=== PATIENT | female | born 1945 | race Caucasian/White ===

== ENCOUNTER 2016-05-01 12:32 | Outpatient (CLI) | payer MEDICARE, OTHER | END 2016-05-01 12:33 | disposition home or self-care (01) | DX: M85.89 Other specified disorders of bone density and structure, multiple sites (principal); Z78.0 Asymptomatic menopausal state ==

== ENCOUNTER 2016-05-06 18:50 | Outpatient (CLI) | payer MEDICARE, OTHER | END 2016-05-06 18:51 | disposition home or self-care (01) | DX: Z13.220 Encounter for screening for lipoid disorders (principal) ==

== ENCOUNTER 2016-11-26 07:30 | Outpatient (CLI) | payer MEDICARE, OTHER ==
[2016-11-26 13:47] LABS: CHOL/HDL RATIO 3.6 (<4.4); CHOLESTEROL 237 mg/dL; HDL CHOLESTEROL 65 mg/dL; LDL/HDL RATIO 2.4 (<4.4); TRIGLYCERIDES 72 mg/dL; VLDL CHOLESTEROL 14 mg/dL
== END 2016-11-26 07:31 | disposition home or self-care (01) ==
LOC: LAB.N 07:30
PROVIDERS: ATTEND Physician Assistant
DX: E78.5 Hyperlipidemia, unspecified (principal)
CPT/HCPCS: 36415; 80061

== ENCOUNTER 2017-05-05 08:00 | Outpatient (CLI) | payer MEDICARE, OTHER ==
[2017-05-05 13:14] LABS: ALBUMIN 4.1 g/dL (3.2-5.5); ALBUMIN/GLOBULIN RATIO 1.3 (1.0-2.2); ALKALINE PHOSPHATASE 62 IU/L (42-121); ALT ALANINE AMINOTRANSFERASE 23 IU/L (10-60); AST ASPARTATE AMINOTRANSFERASE 25 IU/L (10-42); BUN - BLOOD UREA NITROGEN 16 mg/dL (6-20); CALCIUM 9.1 mg/dL (8.5-10.3); CARBON DIOXIDE - CO2 27 mmol/L (21-32); CHLORIDE 104 mmol/L (101-111); CHOLESTEROL 250 mg/dL; CREATININE 0.9 mg/dL (0.4-1.0); GFR - MDRD 61 (>89); GLUCOSE 92 mg/dL (70-100); HDL CHOLESTEROL 62 mg/dL; LDL CHOLESTEROL,CALCULATED 174 mg/dL; LDL/HDL RATIO 2.8 (<4.4); SODIUM 137 mmol/L (135-145); TOTAL PROTEIN 7.3 g/dL (6.7-8.2); VLDL CHOLESTEROL 14 mg/dL
== END 2017-05-05 08:01 | disposition home or self-care (01) ==
LOC: LAB.N 08:00
PROVIDERS: ATTEND Physician Assistant
DX: E78.5 Hyperlipidemia, unspecified (principal)
CPT/HCPCS: 36415; 80053; 80061; 83721

== ENCOUNTER 2017-06-02 07:55 | Outpatient (CLI) | payer MEDICARE, OTHER ==
--- NOTE | 2017-06-02 15:23 | Ultrasound Report ---
COMPLETE ABDOMINAL ULTRASOUND: 06/02/2017 CLINICAL INDICATION: Pain, distention. TECHNIQUE: Real-time scanning was performed with fulfillment representative static images obtained. FINDINGS: The liver measures 14.7 cm. Hepatic echogenicity is normal. No intrahepatic biliary dilatation or focal parenchymal lesion is present. The common bile duct measures 4 mm. The gallbladder is normal, as is the pancreas. The right kidney measures 9.5 cm, and appears unremarkable. The left kidney measures 9.4 cm. There is a nonobstructing 8 mm calculus in a lower pole ayesha, and a 2 cm simple cortical cyst present. The spleen measures 9.5 cm, and demonstrates normal echotexture. The abdominal aorta and inferior vena cava are unremarkable. No free fluid is present. IMPRESSION: NONOBSTRUCTING LEFT RENAL CALCULUS. TD: 06/02/2017 15:22 MTDD
--- NOTE | 2017-06-02 15:25 | Ultrasound Report ---
PELVIC ULTRASOUND: 06/02/2017 CLINICAL INDICATION: Pain, bloating. TECHNIQUE: Transabdominal pelvic ultrasound performed for global evaluation. FINDINGS: The uterus is anteverted, measuring 4.3 x 3.8 x 1.7 cm. The endometrium measures 2 mm. No focal myometrial lesion is appreciated. The ovaries are normal, with the right measuring 2.1 x 1.5 x 1.0 cm, and the left measuring 1.9 x 1.6 x 1.3 cm. No free fluid is seen. IMPRESSION: NORMAL TRANSABDOMINAL PELVIC ULTRASOUND. TD: 06/02/2017 15:24
== END 2017-06-02 07:56 | disposition home or self-care (01) ==
LOC: DI 07:55
PROVIDERS: ATTEND Physician Assistant
DX: N20.0 Calculus of kidney (principal)
CPT/HCPCS: 76700; 76856

== ENCOUNTER 2017-07-29 08:00 | Outpatient (CLI) | payer MEDICARE, OTHER ==
[2017-07-29 13:49] LABS: AST ASPARTATE AMINOTRANSFERASE 25 IU/L (10-42); CHOL/HDL RATIO 2.8 (<4.4); CHOLESTEROL 144 mg/dL; HDL CHOLESTEROL 52 mg/dL; LDL CHOLESTEROL,CALCULATED 78 mg/dL; LDL/HDL RATIO 1.5 (<4.4); VLDL CHOLESTEROL 14 mg/dL
== END 2017-07-29 08:01 | disposition home or self-care (01) ==
LOC: LAB.N 08:00
PROVIDERS: ATTEND Physician Assistant
DX: E78.5 Hyperlipidemia, unspecified (principal)
CPT/HCPCS: 36415; 80061; 83721; 84450

== ENCOUNTER 2018-04-13 07:53 | Outpatient (CLI) | payer MEDICARE, OTHER ==
[2018-04-13 14:17] LABS: ALBUMIN 3.5 g/dL (3.2-5.5); ALBUMIN/GLOBULIN RATIO 1.2 (1.0-2.2); ALKALINE PHOSPHATASE 78 IU/L (42-121); ALT ALANINE AMINOTRANSFERASE 43 IU/L (10-60); AST ASPARTATE AMINOTRANSFERASE 26 IU/L (10-42); BUN - BLOOD UREA NITROGEN 17 mg/dL (6-20); CALCIUM 8.8 mg/dL (8.5-10.3); CARBON DIOXIDE - CO2 29 mmol/L (21-32); CHLORIDE 101 mmol/L (101-111); CHOL/HDL RATIO 2.5 (<4.4); CHOLESTEROL 156 mg/dL; CREATININE 0.9 mg/dL (0.4-1.0); GFR - MDRD 61 (>89); GLUCOSE 94 mg/dL (70-100); HDL CHOLESTEROL 62 mg/dL; LDL CHOLESTEROL,CALCULATED 83 mg/dL; LDL/HDL RATIO 1.3 (<4.4); SODIUM 137 mmol/L (135-145); TOTAL PROTEIN 6.4 g/dL (6.7-8.2); VLDL CHOLESTEROL 11 mg/dL
== END 2018-04-13 23:59 | disposition home or self-care (01) ==
LOC: LAB.N 07:53
PROVIDERS: ATTEND Physician Assistant
DX: Z00.00 Encounter for general adult medical examination without abnormal findings (principal); E78.5 Hyperlipidemia, unspecified; Z51.81 Encounter for therapeutic drug level monitoring
CPT/HCPCS: 36415; 80053; 80061; 83721

== ENCOUNTER 2021-07-12 13:04 | Outpatient (CLI) | payer MEDICARE, OTHER ==
--- NOTE | 2021-07-12 14:01 | CT Report ---
PROCEDURE: HEAD WO INDICATIONS: FORGETFULNESS AFTER HITTING HEAD TECHNIQUE: Noncontrast 4.5 mm thick angled axial sections acquired from the foramen magnum to the vertex. For r adiation dose reduction, the following was used: automated exposure control, adjustment of mA and/or kV according to patient size. COMPARISON: None FINDINGS: Image quality: Excellent. CSF spaces: Basal cisterns are patent. No extra-axial fluid collections. The ventricles are symmet claudio in size and shape. Brain: No intracranial bleeds or masses. There is cerebral volume loss for age, with resultant vent ricular and sulcal prominence. Incidental note made of a right choroidal fissure cyst. There are clint ventricular and deep white matter chronic small vessel ischemic changes. There is intracranial inter nal carotid artery atherosclerosis. Skull and face: Calvarium and visualized facial bones appear intact, without suspicious lesions. Sinuses: Visualized sinuses and mastoids are clear. IMPRESSION: No acute intracranial disease process. Reviewed by: Brenna Francis MD, PhD on 07/12/2021 2:00 PM PDT Approved by: Brenna Francis MD, PhD on 07/12/2021 2:00 PM PDT Station ID: [id number]
== END 2021-07-12 13:05 | disposition home or self-care (01) ==
LOC: DI 13:04
PROVIDERS: ATTEND Physician Assistant
DX: R41.3 Other amnesia (principal); S09.90XA Unspecified injury of head, initial encounter

== ENCOUNTER 2022-03-20 11:20 | Outpatient (CLI) | payer MEDICARE, OTHER ==
--- NOTE | 2022-03-20 11:42 | XRAY Report ---
PROCEDURE: Hip w/Pelvis 2-3V LT INDICATIONS: L HIP PAIN TECHNIQUE: AP pelvis with lateral view(s) of the left hip(s). COMPARISON: None. FINDINGS: Bones: No fractures or dislocations. Pelvic ring appears intact. No suspicious bony lesions. Soft tissues: The visualized bowel gas pattern is normal. No suspicious soft tissue calcifications. IMPRESSION: No acute fracture. No osseous lesion. If symptoms and/or clinical suspicion for patholog y continue, further assessment with repeat plain films, or advanced imaging (e.g., CT, MRI, or bone s can) is recommended for further assessment. Reviewed by: Jorge A Alfredo MD on 03/20/2022 11:41 AM PST Approved by: Jorge A Alfredo MD on 03/20/2022 11:41 AM PST Station ID: [id number]
== END 2022-03-20 11:21 | disposition home or self-care (01) ==
LOC: DI 11:20
PROVIDERS: ATTEND Internal Medicine
DX: M25.552 Pain in left hip (principal)